=== PATIENT | male | born 1975 | race Caucasian/White ===

== ENCOUNTER 2016-08-01 07:24 | Emergency (ER) | payer OTHER ==
[2016-08-01 07:34] VITALS: BP 131/69; PULSE 75; TEMP 98.2; BMI 23.8
--- NOTE | 2016-08-01 07:46 | PDOC ---
History of Present Illness - General History Source: Patient <Kim Segura - Last Filed: 08/01/16 08:07> - General History Source: Patient Exam Limitations: No Limitations - History of Present Illness Initial Comments: 08/01/16 08:15 The patient is a 41 year old male, with a significant past medical history of asthma, who presents to the emergency department complaining of a cough for approximately one week. The patient reports his cough has been worse during the past 2 days, and is productive of clear sputum. He reports associated chest tightness, headache, and sinus congestion. The patient admits he has a history of seasonal allergies. The patient admits he is a social smoker. He denies any chest pain, shortness of breath, diaphoresis, or palpitations. He denies any fever, chills, or dizziness. He denies any recent travel or sick contacts. Allergies: None reported. Past Surgical History: None reported. Social History: Occasional smoker. Denies alcohol or drug use. <Cindy Frank - Last Filed: 08/01/16 08:46> - General Chief Complaint: Respiratory Stated Complaint: COUGH Time Seen by Provider: 08/01/16 07:46 Past History - Past Medical History Asthma: Yes - Psycho/Social/Smoking Cessation Hx Suicidal Ideation: No Smoking History: Current some day smoker Have you smoked in the past 12 months: Yes Information on smoking cessation initiated: No <Kim Segura - Last Filed: 08/01/16 08:07> <Cindy Frank - Last Filed: 08/01/16 08:46> - Past Medical History Allergies/Adverse Reactions: Allergies Allergy/AdvReac Type Severity Reaction Status Date / Time No Known Allergies Allergy Verified 08/01/16 07:31 Home Medications: Ambulatory Orders Albuterol Sulfate Inhaler - [Ventolin HFA Inhaler -] 1 - 2 inh PO Q4H #1 inhaler 08/01/16 Review of Systems - Review of Systems Able to Perform ROS?: Yes Comments:: 08/01/16 08:16 GENERAL/CONSTITUTIONAL: No fever or chills. No weakness. HEAD, EYES, EARS, NOSE AND THROAT: Yes: +sinus congestion. No change in vision. No ear pain or discharge. No sore throat. CARDIOVASCULAR: Yes: +Chest tightness. No chest pain or shortness of breath. RESPIRATORY: Yes: +Cough. No wheezing or hemoptysis. GASTROINTESTINAL: No nausea, vomiting, diarrhea or constipation. GENITOURINARY: No dysuria, frequency, or change in urination. MUSCULOSKELETAL: No joint or muscle swelling or pain. No neck or back pain. SKIN: No rash NEUROLOGIC: Yes: +Headache. No vertigo, loss of consciousness, or change in strength/sensation. ENDOCRINE: No increased thirst. No abnormal weight change. HEMATOLOGIC/LYMPHATIC: No anemia, easy bleeding, or history of blood clots. ALLERGIC/IMMUNOLOGIC: No hives or skin allergy. <Cindy Frank - Last Filed: 08/01/16 08:46> *Physical Exam - Vital Signs Last Vital Signs Temp Pulse Resp BP Pulse Ox 98.2 F 75 16 131/69 95 08/01/16 07:31 08/01/16 07:31 08/01/16 07:31 08/01/16 07:31 08/01/16 07:31 <Kim Segura - Last Filed: 08/01/16 08:07> - Vital Signs Last Vital Signs Temp Pulse Resp BP Pulse Ox 98.2 F 75 16 131/69 95 08/01/16 07:31 08/01/16 07:31 08/01/16 07:31 08/01/16 07:31 08/01/16 07:31 - Physical Exam Comments: 08/01/16 08:16 GENERAL: Awake, alert, and fully oriented, in no acute distress HEAD: No signs of trauma EYES: PERRLA, EOMI, sclera anicteric, conjunctiva clear ENT: Bilateral turbinate enlargement. Cobblestoning in pharynx, but no exudates. Auricles normal inspection, hearing grossly normal. Moist mucosa NECK: Normal ROM, supple, no lymphadenopathy, JVD, or masses LUNGS: Wheezing in bilateral lung sanchez, but no crackles. HEART: Regular rate and rhythm, normal S1 and S2, no murmurs, rubs or gallops ABDOMEN: Soft, nontender, normoactive bowel sounds. No guarding, no rebound. No masses EXTREMITIES: Normal range of motion, no edema. No clubbing or cyanosis. No cords, erythema, or tenderness. NEUROLOGICAL: Moves all extremities. Normal speech, normal gait SKIN: Warm, Dry, normal turgor, no rashes or lesions noted. <Cindy Frank - Last Filed: 08/01/16 08:46> ED Treatment Course - RADIOLOGY Radiograph Interpretation: 08/01/16 08:45 EXAM: CXR INTERPRETED BY: Dr. Pandey REVIEWED BY: Dr. Segura IMPRESSION: No evidence of active pulmonary disease. - Medications Given in the ED: ED Medications Discontinued Medications Generic Name Dose Route Start Last Admin Trade Name Mayra PRN Reason Stop Dose Admin Albuterol/Ipratropium 1 amp 08/01/16 08:02 08/01/16 08:00 Duoneb - NEB 08/01/16 08:03 1 amp ONCE ONE Administration <Cindy Frank - Last Filed: 08/01/16 08:46> Medical Decision Making - Medical Decision Making 08/01/16 08:00 41 yo M with h/o wheezing in past, occasional smoker here with c/o cough x one week, chest congestion, wheezing and sob. does report seasonal allergies, worse recently with nose congestion. not taking any medication currently. no current steroids. cough clear phlegm. worse in am, chest congestion and cough worse at night. no f/c no chest pain. no other complaints. on exam lungs bilateral wheezing, normal effort, no distress. heart RRR no m/r/ g. abd soft NT. ext wwp, no edema. ddgx: bronchitis, bronchospasm, allergic rhinitis and sinusitis. plan bronchodilators, nasal decongestant reassess. cxr r/o pnaa. <Kim Segura - Last Filed: 08/01/16 08:07> *DC/Admit/Observation/Transfer - Discharge Dispostion Admit: No <Kim Segura - Last Filed: 08/01/16 08:07> - Attestations Scribe Attestion: 08/01/16 08:16 Documentation prepared by Cindy Frank, acting as medical genetics director for Kim Segura MD. <Cindy Frank - Last Filed: 08/01/16 08:46> Diagnosis at time of Disposition: Allergic rhinitis, Bronchitis - Prescriptions Prescriptions: Albuterol Sulfate Inhaler - [Ventolin HFA Inhaler -] 1 - 2 inh PO Q4H #1 inhaler - Patient Instructions Printed Discharge Instructions: DI for Acute Bronchitis Additional Instructions: use inhaler albuterol 2 puffs every 4 hours as needed for wheezing, cough or shortness of breath. follow up with your regular doctor. you can take pseudophed 30 mg every 6 hrs as needed for nasal congestoins. you should also take allergy medication daily during high season such as claritin or zyrtec ( over the counter ) you can also use flonase ( nasal spray over the counter ) one spray each nostril daily to help with allergic nasal congestion. you should abstain from smoking . follow up with your regular doctor. return for any worsening symtpoms, shortness of breath or any concerns. - Post Discharge Activity Work/School Note: Back to Work
[2016-08-01] MEDS ORDERED: ALBUTEROL SO4 2.5/IPRATROPIUM 0.5 INH SOL 3 ML VIAL.NEB. NEB ONE (08:02)
[2016-08-01] MEDS ORDERED: PSEUDOEPHEDRINE HCL 30 MG TABLET PO ONE (08:05)
== END 2016-08-01 09:32 | disposition home or self-care (01) ==
LOC: JER 07:24
DX: J40 Bronchitis, not specified as acute or chronic (principal); F17.210 Nicotine dependence, cigarettes, uncomplicated
CPT/HCPCS: 71020-TC; 99281-25